=== PATIENT | male | born 1965 | race African-American/Black ===

== ENCOUNTER 2019-10-10 12:14 | Inpatient (IN) | payer BC ==
[2019-10-10] MEDS ORDERED: SODIUM CHLORIDE 1,000 ML IV STA ×2 (12:36→14:02)
[2019-10-10] MEDS ORDERED: ONDANSETRON 4 MG/2 ML VIAL IVPB ONE (12:36)
[2019-10-10] MEDS ORDERED: FAMOTIDINE 20 MG/50 ML IVPB 20 MG/50 ML MG IVPB ONE ×2 (12:37→12:53)
[2019-10-10] MEDS ORDERED: ACETAMINOPHEN 1000 MG/100 ML VIAL (NON FORMULARY) IVPB ONE (12:45)
--- NOTE | 2019-10-10 12:52 | PDOC ---
History of Present Illness - General Chief Complaint: Shortness of Breath Stated Complaint: DIFFICULTY BREATHING/VOMITING Time Seen by Provider: 10/10/19 12:36 History Source: Patient Exam Limitations: No Limitations - History of Present Illness Initial Comments: 10/10/19 12:47 53y M with PMH of kidney stones presenting to ED for vomiting and SOB x4 days. Patient works as at a [employer] office and states that symptoms started out with congestion and sore throat. He sought medical attention 2 days ago and was given an inhaler. He states that he has had multiple episodes of nbnb vomiting and has not been able to keep anything down. Endorses periumbilical abdominal pain that is 7/10 and nausea. Denies fever, chest pain, cough, diarrhea, back pain, headaches, abdominal surgeries. PMD: PMH: none PSH: none Meds:none Allergies: nkda Social: occasional alcohol use Past History - Past Medical History Allergies/Adverse Reactions: Allergies Allergy/AdvReac Type Severity Reaction Status Date / Time No Known Allergies Allergy Verified 10/10/19 12:29 COPD: No - Psycho Social/Smoking Cessation Hx Smoking History: Never smoked Information on smoking cessation initiated: No Hx Alcohol Use: No Drug/Substance Use Hx: No Review of Systems - Review of Systems Constitutional: No: Chills, Fever, Weakness HEENTM: No: Symptoms Reported Respiratory: Yes: Shortness of Breath. No: Cough Cardiac (ROS): No: Chest Pain, Lightheadedness, Palpitations, Syncope ABD/GI: Yes: See HPI : No: Symptoms Reported Musculoskeletal: No: Symptoms Reported Integumentary: No: Symptoms Reported Neurological: No: Symptoms reported *Physical Exam - Vital Signs Last Vital Signs Temp Pulse Resp BP Pulse Ox 98.6 F 82 19 125/84 100 10/10/19 12:27 10/10/19 12:27 10/10/19 12:27 10/10/19 12:27 10/10/19 12:27 - Physical Exam General Appearance: Yes: Nourished, Appropriately Dressed, Mild Distress HEENT: positive: EOMI, SON Neck: positive: Trachea midline, Supple Respiratory/Chest: positive: Lungs Clear, Wheezing (expiratory). negative: Crackles, Rales, Rhonchi, Stridor Cardiovascular: positive: Regular Rhythm, Regular Rate, S1, S2. negative: Edema , JVD, Murmur Vascular Pulses: Dorsalis-Pedis (R): 2+, Doralis-Pedis (L): 2+ Gastrointestinal/Abdominal: positive: Normal Bowel Sounds, Tender (periumbilical ), Soft. negative: Distended, Guarding, Rebound Musculoskeletal: negative: CVA Tenderness Extremity: positive: Normal Capillary Refill. negative: Swelling, Calf Tenderness Integumentary: positive: Normal Color, Dry, Warm Neurologic: positive: synthetic soil blocks pulper II-XII NML intact, Fully Oriented, Alert, Normal Mood/ Affect, Normal Response, Motor Strength 02/18 ED Treatment Course - LABORATORY CBC & Chemistry Diagram: 10/10/19 12:45 10/10/19 12:45 Medical Decision Making - Medical Decision Making 10/10/19 13:29 53y M with no significant PMH presenting to ED for SOB and vomiting vitals are stable and wnl PE: minimal abdominal tenderness but pain out of proportion. minimal expiratory wheezing. ddx includes but not limited to viral gastritis, appendicitis, acs, pe, dissection, chf, pna, pleurisy, carditis, pancreatitis, cholecystitis low suspicion for pe and dissection given patient is not tachynpneic, saturating well on RA, not tachycardic, no chest pain. -cbc, cmp, trop, lipase, lactic, UA, ekg, cxr, CTAP -iv fluids, zofran, pepcid, ofirmev upon reassessment, pt stated he felt sob. stated inhalers helped; will give albuterol treatment. labs show Wbc 13. Still wheezing, will order 2 more treatments and decadron cxr: no consolidations or infiltrates. ekg: nsr at 81bpm. no gera or depressions. normal intervals. R wave progression. Lipase 5k with elevated LFTs; likely gallstone pancreatitis, will order RUQ sono Sono: Gall bladder shows no stones or signs of inflammation. No biliary dilation seen. Liver shows mild steatosis. Right kidney shows no hydronephrosis. Portal vein shows unremarkable venous waveform. Direction of flow is not well assessed. CT: No acute process seen of the abdomen or pelvis. No gallstones or biliary dilation or obstruction seen. Mild umbilical fat hernia. will admit for pancreatitis: patient has abdominal pain with palpation and elevated LFTs and lipase. endorsed to Dr. Starkey Discharge - Discharge Information Problems reviewed: Yes Clinical Impression/Diagnosis: Pancreatitis Qualifiers: Chronicity: acute Pancreatitis type: unspecified pancreatitis type Acute pancreatitis complication: unspecified Qualified Code(s): K85.90 - Acute pancreatitis without necrosis or infection, unspecified Condition: Stable - Admission Yes - Follow up/Referral - Patient Discharge Instructions - Post Discharge Activity
[2019-10-10] MEDS ORDERED: ONDANSETRON 4 MG/2 ML VIAL ONE (12:53)
[2019-10-10 12:59] LABS: BASO % 0.5 % (0-2.0); HEMATOCRIT 46.7 % (35.4-49); HEMOGLOBIN 15.8 GM/dL (11.7-16.9); LYMPH % 7.8 % (8-40); MCH 29.6 pg (25.7-33.7); MCHC 33.9 g/dl (32.0-35.9); MEAN CELL VOLUME 87.4 fl (80-96); MEAN PLT VOLUME 7.7 fl (7.5-11.1); MONO % 8.5 % (3.8-10.2); NEUT % 83.2 % (42.8-82.8); PLATELET COUNT 319 K/MM3 (134-434); RBC 5.34 M/mm3 (4.00-5.60); RDW 12.5 % (11.9-15.9); WHITE BLOOD COUNT 13.6 K/mm3 (4.0-10.0)
[2019-10-10] MEDS ORDERED: ACETAMINOPHEN INJECTION 100 ML IVPB ONE (13:06)
[2019-10-10] MEDS ORDERED: ALBUTEROL SO4 0.083% IH SOL 2.5 MG/3 ML VIAL.NEB. NEB ONE ×3 (13:20→13:54)
[2019-10-10] MEDS ORDERED: DEXAMETHASONE SOD PHOSPHATE 10 MG/1 ML VIAL IVPUSH ONE (13:54)
[2019-10-10 13:58] LABS: ALBUMIN 4.5 g/dl (3.4-5.0); BILIRUBIN,TOTAL 0.9 mg/dL (0.2-1); CALCIUM 9.9 mg/dL (8.5-10.1); POTASSIUM 4.1 mmol/L (3.5-5.1); TOT PROT 8.3 g/dl (6.4-8.2)
[2019-10-10] MEDS ORDERED: ALBUTEROL SO4 2.5/IPRATROPIUM 0.5 INH SOL 3 ML VIAL.NEB. NEB ONE (14:04)
[2019-10-10] MEDS ORDERED: DEXAMETHASONE SOD PHOSPHATE 10 MG/1 ML VIAL ONE (14:04)
[2019-10-10] MEDS ORDERED: LACTATED RINGERS SOLUTION 1000 ML INFUS.BAG IV ONE (14:04)
[2019-10-10 14:48] LABS: EPI CELLS 1.8 /HPF (0-5/HPF); HYALINE CASTS 4 /lpf (0-8); PH,URINE 5.5 (5.0-8.0); URINE APPEARANCE CLEAR; URINE BACTERIA 0.7 /hpf (NEGATIVE); URINE BILIRUBIN NEGATIVE (NEGATIVE); URINE COLOR YELLOW; URINE GLUCOSE (UA) NEGATIVE (NEGATIVE); URINE KETONE 1+ (NEGATIVE); URINE LEUK ESTERASE NEGATIVE (NEGATIVE); URINE NITRITE NEGATIVE (NEGATIVE); URINE PROTEIN 2+ (NEGATIVE); URINE RBC 3 /hpf (0-4); URINE WBC 3 /hpf (0-5)
--- NOTE | 2019-10-10 15:54 | PDOC ---
Documentation entered by Sonya Barboza SCRIBE, acting as scribe for Dionisio Noel MD. Dionisio Noel MD: This documentation has been prepared by the lorenzaibe, Sonya Barboza SCRIBE, under my direction and personally reviewed by me in its entirety. I confirm that the documentation accurately reflects all work, treatment, procedures, and medical decision making performed by me. Attending Attestation - Resident Resident Name: Sofi Rodriguez - ED Attending Attestation I have performed the following: I have examined & evaluated the patient, The case was reviewed & discussed with the resident, I agree w/resident's findings & plan, Exceptions are as noted - HPI HPI: 10/10/19 13:20 The patient is a 53-year-old male with a past medical history significant for Kidney stones and childhood asthma who presents to the emergency department with shortness of breath and vomiting. The patient reports about a week ago he had an onset of shortness of breath, reports following up with Dr. Juares (PMD) on Tuesday, who prescribed the patient an albuterol pump. The patient denies relief with the pump, and the shortness of breath hasnt gotten better since. The patient reports on Tuesday, he started to have innumerable episodes of nonbloody, nonbilious emesis associated with diffuse abdominal pain. The patient reports he had a normal bowel movement on Tuesday. Denies fever, chills, cough, headache, chest pain, diarrhea, hematochezia, melena, urinary symptoms, leg swelling, or calf pain. Denies focal weakness/numbness. Allergies: NKDA Social history: Denies the use of tobacco, alcohol or recreational drugs. PCP: Dr. Juares. - Physicial Exam PE: 10/10/19 14:13 GENERAL: Awake, alert, and fully oriented, in no acute distress, +appears uncomfortable. EYES: PERRLA, EOMI, sclera anicteric, conjunctiva clear ENT: Oropharynx clear without exudates. Moist mucosa NECK: Normal ROM, supple, no lymphadenopathy, JVD, or masses LUNGS: +good air movement in lungs, +diffuse expiratory wheezing right greater than left. No crackles HEART: Regular rate and rhythm, normal S1 and S2, no murmurs, rubs or gallops ABDOMEN: Soft, nontender, normoactive bowel sounds. No guarding, no rebound. No masses EXTREMITIES: Normal range of motion, no edema. No clubbing or cyanosis. No cords , erythema, or tenderness NEUROLOGICAL: Normal speech, cranial nerves intact, 5/5 strength in all 4 extremities, normal sensation to light touch in all 4 extremities, normal cerebellar exam, normal gait SKIN: Warm, Dry, normal turgor, no rashes or lesions noted. - Medical Decision Making 10/10/19 15:51 53-year-old male with a history of renal colic and childhood asthma presents the emergency department with 1 week of shortness of breath and 2 days of abdominal pain, nausea, and vomiting. Lungs with diffuse wheezing consistent with asthma exacerbation. Patient feeling better with nebulizer treatments. We will also give steroids for further treatment. Labs remarkable for lipase elevation to 3500 consistent with pancreatitis. Ultrasound negative for any gallstones or biliary dilation. Will obtain CT scan to evaluate for necrosis or pseudocyst. 2 L of normal saline ordered. Patient denies excessive drinking, new medications. Anticipate admission for pancreatitis and asthma exacerbation. 10/10/19 16:[address] Starkey for admission, pt accepted to her service Case discussed in detail with admitting physician including history, physical exam and ancillary studies. Admitting physician has assumed care for the patient, will follow all pending diagnostics and will complete the evaluation and treatment.
[2019-10-10] MEDS ORDERED: morphine SULFATE 4 MG/ML VIAL IVPUSH ONE (20:45)
[2019-10-11] MEDS ORDERED: ONDANSETRON 4 MG/2 ML VIAL IVPUSH PRN (00:38)
[2019-10-11] MEDS ORDERED: ALBUTEROL SO4 2.5/IPRATROPIUM 0.5 INH SOL 3 ML VIAL.NEB. NEB PRN (00:40)
[2019-10-11] MEDS: PIPERACILLIN/TAZOB 3.375 GM 3.375 GM in DEXTROSE 5%-WATER - 50 ML IVPB SCH ×2 (02:30→09:59)
[2019-10-11] MEDS ORDERED: PIPERACILLIN/TAZOBACTAM 3.375 GM VIAL IVPB ONE ×2 (02:39→09:54)
[2019-10-11] MEDS ORDERED: DEXTROSE 5%-WATER - 50 ML IVPB ONE ×2 (02:39→09:54)
[2019-10-11] MEDS: DEXTROSE 5%-0.45% SALINE 1,000 ML IV SCH ×2 (02:57→21:30)
--- NOTE | 2019-10-11 05:08 | EKG ---
Test Reason : Blood Pressure : / mmHG Vent. Rate : 081 BPM Atrial Rate : 081 BPM P-R Int : 122 ms QRS Dur : 088 ms QT Int : 378 ms P-R-T Axes : 066 016 045 degrees QTc Int : 439 ms NORMAL SINUS RHYTHM POSSIBLE LEFT ATRIAL ENLARGEMENT BORDERLINE ECG WHEN COMPARED WITH ECG OF 02-NOV-2010 13:28, T WAVE INVERSION NO LONGER EVIDENT IN INFERIOR LEADS Confirmed by ANGEL CACERES, ASCENCION ([id number]) on 10/11/2019 5:08:16 AM Referred By: Confirmed By:ASCENCION ORTIZ MD
[2019-10-11 08:32] LABS: BASO % 0.2 % (0-2.0); HEMATOCRIT 41.5 % (35.4-49); HEMOGLOBIN 13.8 GM/dL (11.7-16.9); LYMPH % 8.2 % (8-40); MCH 29.4 pg (25.7-33.7); MCHC 33.4 g/dl (32.0-35.9); MEAN CELL VOLUME 88.1 fl (80-96); MEAN PLT VOLUME 8.5 fl (7.5-11.1); MONO % 7.5 % (3.8-10.2); NEUT % 84.1 % (42.8-82.8); PLATELET COUNT 291 K/MM3 (134-434); RBC 4.71 M/mm3 (4.00-5.60); RDW 13.1 % (11.9-15.9)
[2019-10-11 09:18] LABS: ALBUMIN 3.6 g/dl (3.4-5.0); BLOOD UREA NITROGEN 22.1 mg/dL (7-18); CALCIUM 8.9 mg/dL (8.5-10.1); CREATININE 0.8 mg/dL (0.55-1.3); POTASSIUM 4.2 mmol/L (3.5-5.1)
--- NOTE | 2019-10-11 11:12 | CON.ID ---
Consult Consult Specialty:: infectious diseases Referred by:: Reason for Consultation:: abd pain,vomiting,sob - History of Present Illness Chief Complaint: weakness,vomiting,sob History of Present Illness: 53-year-old male with a past medical history significant for Kidney stones and childhood asthma who presents with shortness of breath and vomiting. The patient reports about a week ago he had an onset of shortness of breath, reports following up with Dr. Juares (PMD) on Tuesday, who prescribed the patient an albuterol pump. The patient denies relief with the pump, and the shortness of breath hasnt gotten better since. The patient reports on Tuesday, he started to have innumerable episodes of nonbloody, nonbilious emesis associated with diffuse abdominal pain. The patient reports he had a normal bowel movement on Tuesday. Denies fever, chills, cough, headache, chest pain, diarrhea, hematochezia, melena, urinary symptoms, leg swelling, or calf pain. Denies focal weakness/numbness. patient mentions that since last one week he has feeling under the weather and thought he had flu as he was very weak - History Source History Provided By: Patient Limitations to Obtaining History: No Limitations - Alcohol/Substance Use Hx Alcohol Use: No - Smoking History Smoking history: Never smoked Home Medications - Allergies Allergies/Adverse Reactions: Allergies Allergy/AdvReac Type Severity Reaction Status Date / Time No Known Allergies Allergy Verified 10/10/19 12:29 Review of Systems - Review of Systems Constitutional: reports: Weakness Eyes: reports: No Symptoms HENT: reports: No Symptoms Neck: reports: No Symptoms Cardiovascular: reports: No Symptoms Respiratory: reports: Cough, SOB Gastrointestinal: reports: Nausea Genitourinary: reports: No Symptoms Musculoskeletal: reports: No Symptoms Integumentary: reports: No Symptoms Neurological: reports: No Symptoms Endocrine: reports: No Symptoms Hematology/Lymphatic: reports: No Symptoms Psychiatric: reports: No Symptoms Physical Exam Vital Signs: Vital Signs Temperature 97.0 F L 10/11/19 10:00 Pulse Rate 58 L 10/11/19 10:00 Respiratory Rate 18 10/11/19 10:00 Blood Pressure 123/74 10/11/19 10:00 O2 Sat by Pulse Oximetry (%) 98 10/10/19 20:36 Constitutional: Yes: Well Nourished, No Distress, Calm Eyes: Yes: Conjunctiva Clear HENT: Yes: Atraumatic, Normocephalic Cardiovascular: Yes: Regular Rate and Rhythm Respiratory: Yes: Regular, CTA Bilaterally Gastrointestinal: Yes: Normal Bowel Sounds, Soft Musculoskeletal: Yes: WNL Extremities: Yes: WNL Neurological: Yes: Alert, Oriented Psychiatric: Yes: Alert, Oriented Labs: CBC, BMP 10/11/19 06:55 10/11/19 06:55 Imaging - Results Chest X-ray: Report Reviewed, Image Reviewed Cat Scan: Report Reviewed, Image Reviewed Assessment/Plan this patient coming in wiht nausea,vomiting mainly and who has been sick for about one week i am leaning towards viral infection wbc has increased i am going to stop all abx and monitor him rest as per the team hydration monitor for vomiting
--- NOTE | 2019-10-11 14:06 | PN ---
Progress Note (short form) - Note Progress Note: Called to evaluate patient. Patient is a patient of Dr. Ben Gonzalez and known to Dr. Galarza (performed Mr. lopez's colonoscopy as outpatient per the patient) . Advised nurse to call Dr. Galarza's service for further evaluation.
--- NOTE | 2019-10-11 18:14 | CON.GI ---
Consult Consult Specialty:: GI Reason for Consultation:: Pancreatitis - History of Present Illness History of Present Illness: 53year-old male with a history of renal colic and childhood asthma presents the emergency department with 1 week of shortness of breath and 2 days of abdominal pain, nausea, and vomiting. In the ER he was noted to be wheezing and lipase was 3500. The ct scan revealed a normal pancreas Last colonoscopy 2010 - Alcohol/Substance Use Hx Alcohol Use: No - Smoking History Smoking history: Never smoked Home Medications - Allergies Allergies/Adverse Reactions: Allergies Allergy/AdvReac Type Severity Reaction Status Date / Time No Known Allergies Allergy Verified 10/10/19 12:29 Physical Exam-GI Vital Signs: Vital Signs Temperature 98.8 F 10/11/19 13:52 Pulse Rate 56 L 10/11/19 13:52 Respiratory Rate 18 10/11/19 13:52 Blood Pressure 113/76 10/11/19 13:52 O2 Sat by Pulse Oximetry (%) 98 10/11/19 09:00 Constitutional: Yes: Well Nourished Eyes: Yes: Conjunctiva Clear HENT: Yes: Atraumatic Neck: Yes: Supple Cardiovascular: Yes: Regular Rate and Rhythm Respiratory: Yes: CTA Bilaterally ...Palpate: Yes: Soft, Tenderness. No: Firm/Rigid, Guarding, Hepatomegaly, Mass , Pulsatile Mass, Splenomegaly Labs: CBC, BMP 10/11/19 06:55 10/11/19 06:55 Hepatic Panel Total Bilirubin 1.0 mg/dL (0.2-1) 10/11/19 06:55 AST 122 U/L (15-37) H 10/11/19 06:55 ALT 166 U/L (13-61) H 10/11/19 06:55 Alkaline Phosphatase 61 U/L (45-117) 10/11/19 06:55 Albumin 3.6 g/dl (3.4-5.0) 10/11/19 06:55 Problem List - Problems (1) Acute pancreatitis Assessment/Plan: r/o viral R> IV hydration Code(s): K85.90 - ACUTE PANCREATITIS WITHOUT NECROSIS OR INFECTION, UNSP (2) Elevated liver enzymes Assessment/Plan: etiology unclear R> hepatitis profile trend LFTS furhter w/u as an outpatient made aware to follow up Problems reviewed: Yes Code(s): R74.8 - ABNORMAL LEVELS OF OTHER SERUM ENZYMES
--- NOTE | 2019-10-11 19:36 | HP ---
Admitting History and Physical - Smoking History Smoking history: Never smoked - Alcohol/Substance Use Hx Alcohol Use: No Home Medications - Allergies Allergies/Adverse Reactions: Allergies Allergy/AdvReac Type Severity Reaction Status Date / Time No Known Allergies Allergy Verified 10/10/19 12:29 Physical Examination Vital Signs: Vital Signs Temperature 98.1 F 10/11/19 18:00 Pulse Rate 81 10/11/19 18:00 Respiratory Rate 18 10/11/19 18:00 Blood Pressure 112/62 10/11/19 18:00 O2 Sat by Pulse Oximetry (%) 98 10/11/19 09:00 Labs: CBC, BMP 10/11/19 06:55 10/11/19 06:55
[2019-10-12] MEDS ORDERED: PIPERACILLIN/TAZOB 3.375 GM 3.375 GM in DEXTROSE 5%-WATER - 50 ML IVPB SCH (02:00)
--- NOTE | 2019-10-12 08:58 | PN ---
Progress Note, Physician History of Present Illness: GI FOLLOW UP NOTE Patient examined and case discussed with Dr Galarza Patient states feeling better. Denies nausea, vomiting, abdominal pain, diarrhea, constipation, rectal bleeding, or melena. Lipase level shows downtrend from 3554~279. LFTs are showing uptrend wih AST 122 and ALT 166. - Current Medication List Current Medications: Active Medications Albuterol/Ipratropium (Duoneb -) 1 amp NEB Q6H PRN PRN Reason: SHORTNESS OF BREATH Dextrose/Sodium Chloride (D5-1/2ns -) 1,000 mls @ 75 mls/hr IV ASDIR PABLITO Last Admin: 10/11/19 21:30 Dose: 75 mls/hr Piperacillin Sod/Tazobactam (Sod 3.375 gm/ Dextrose) 50 mls @ 100 mls/hr IVPB Q8H-IV PABLITO; Protocol Ondansetron HCl (Zofran Injection) 4 mg IVPUSH Q6H PRN PRN Reason: NAUSEA - Objective Vital Signs: Vital Signs Temperature 98.4 F 10/12/19 06:27 Pulse Rate 57 L 10/12/19 06:27 Respiratory Rate 20 10/12/19 06:27 Blood Pressure 99/58 L 10/12/19 06:27 O2 Sat by Pulse Oximetry (%) 98 10/11/19 21:00 Constitutional: Yes: No Distress, Calm Eyes: Yes: Conjunctiva Clear HENT: Yes: Atraumatic Cardiovascular: Yes: Regular Rate and Rhythm Respiratory: Yes: Regular, CTA Bilaterally Gastrointestinal: Yes: Normal Bowel Sounds, Soft Neurological: Yes: Alert, Oriented Psychiatric: Yes: Alert, Oriented Labs: CBC, BMP 10/11/19 06:55 10/11/19 06:55 Problem List - Problems (1) Acute pancreatitis Assessment/Plan: >Cont IV Hydration >Lipase level 3553~279 >advance diet as tolerated Code(s): K85.90 - ACUTE PANCREATITIS WITHOUT NECROSIS OR INFECTION, UNSP (2) Elevated liver enzymes Assessment/Plan: >monitor LFTs daily >Hepatitis profile >will need to follow up as outpatient for chronic liver work-up Code(s): R74.8 - ABNORMAL LEVELS OF OTHER SERUM ENZYMES
[2019-10-12 09:18] LABS: BASO % 0.1 % (0-2.0); EOS % 0.1 % (0-4.5); HEMATOCRIT 39.5 % (35.4-49); HEMOGLOBIN 13.4 GM/dL (11.7-16.9); LYMPH % 24.6 % (8-40); MCH 29.7 pg (25.7-33.7); MEAN CELL VOLUME 87.5 fl (80-96); MEAN PLT VOLUME 8.3 fl (7.5-11.1); MONO % 8.3 % (3.8-10.2); NEUT % 66.9 % (42.8-82.8); PLATELET COUNT 275 K/MM3 (134-434); RBC 4.52 M/mm3 (4.00-5.60); RDW 12.4 % (11.9-15.9); WHITE BLOOD COUNT 9.7 K/mm3 (4.0-10.0)
[2019-10-12 09:42] LABS: ALBUMIN 3.3 g/dl (3.4-5.0); BILIRUBIN,TOTAL 1.1 mg/dL (0.2-1); BLOOD UREA NITROGEN 24.3 mg/dL (7-18); CALCIUM 8.4 mg/dL (8.5-10.1); CREATININE 0.8 mg/dL (0.55-1.3); POTASSIUM 3.7 mmol/L (3.5-5.1); TOT PROT 6.3 g/dl (6.4-8.2)
[2019-10-12] MEDS: DEXTROSE 5%-0.45% SALINE 1,000 ML IV SCH (11:45)
--- NOTE | 2019-10-12 12:47 | PN ---
Progress Note, Physician History of Present Illness: starting to feel better lipase has come down - Current Medication List Current Medications: Active Medications Albuterol/Ipratropium (Duoneb -) 1 amp NEB Q6H PRN PRN Reason: SHORTNESS OF BREATH Dextrose/Sodium Chloride (D5-1/2ns -) 1,000 mls @ 75 mls/hr IV ASDIR PABLITO Last Admin: 10/12/19 11:45 Dose: 75 mls/hr Piperacillin Sod/Tazobactam (Sod 3.375 gm/ Dextrose) 50 mls @ 100 mls/hr IVPB Q8H-IV PABLITO; Protocol Ondansetron HCl (Zofran Injection) 4 mg IVPUSH Q6H PRN PRN Reason: NAUSEA - Objective Vital Signs: Vital Signs Temperature 97.5 F L 10/12/19 09:00 Pulse Rate 56 L 10/12/19 09:00 Respiratory Rate 18 10/12/19 09:00 Blood Pressure 100/67 10/12/19 09:00 O2 Sat by Pulse Oximetry (%) 95 10/12/19 09:00 Constitutional: Yes: No Distress, Calm Cardiovascular: Yes: S1, S2 Respiratory: Yes: Regular, CTA Bilaterally Gastrointestinal: Yes: Normal Bowel Sounds, Soft Musculoskeletal: Yes: WNL Extremities: Yes: WNL Neurological: Yes: Alert, Oriented Psychiatric: Yes: Alert, Oriented Labs: CBC, BMP 10/12/19 07:25 10/12/19 07:25 Assessment/Plan Problem List - Problems (1) Acute pancreatitis Code(s): K85.90 - ACUTE PANCREATITIS WITHOUT NECROSIS OR INFECTION, UNSP (2) Elevated liver enzymes Code(s): R74.8 - ABNORMAL LEVELS OF OTHER SERUM ENZYMES nausea vomiting plan continue hydration rest as per the team
--- NOTE | 2019-10-12 14:15 | CON.PULM ---
Consult Consult Specialty:: PULM/CCM Referred by:: MELANIE Reason for Consultation:: SOB, history of asthma - History of Present Illness Chief Complaint: SOB History of Present Illness: 53 M, Intermittent Asthma since childhood. Never steroid dependent, never intubated, unknown PEF, and non-smoker. Admitted via the ER due to shortness of breath and vomiting. His shortness of breath has been intermittent over the past week or so. There has been marginal relief with his Albuterol inhaler. On Tuesday, he developed numerous episodes of nonbloody, nonbilious emesis associated with diffuse abdominal pain. No travel history or sick contacts. CXR: no acute process - History Source History Provided By: Patient Limitations to Obtaining History: No Limitations - Past Medical History Pulmonary: Yes: Asthma, Bronchitis. No: Cancer, COPD, O2 Dependent, Pneumonia, Previously Intubated, Pulmonary Embolus, Pulmonary Fibrosis, Sleep Apnea - Alcohol/Substance Use Hx Alcohol Use: No - Smoking History Smoking history: Never smoked Home Medications - Allergies Allergies/Adverse Reactions: Allergies Allergy/AdvReac Type Severity Reaction Status Date / Time No Known Allergies Allergy Verified 10/10/19 12:29 Review of Systems - Review of Systems Constitutional: denies: Chills, Fever, Lethargy, Loss of Appetite, Malaise, Night Sweats, Unintentional Wgt. Loss Eyes: reports: No Symptoms HENT: reports: No Symptoms Neck: reports: No Symptoms Cardiovascular: reports: Shortness of Breath. denies: Chest Pain, Edema, Palpitations Respiratory: reports: Cough, SOB, SOB on Exertion. denies: Exercise Intolerance , Hemoptysis, Orthopnea, PND, Snoring, Wheezing Gastrointestinal: reports: Abdominal Pain, Melena, Nausea, Vomiting Genitourinary: reports: No Symptoms Breasts: reports: No Symptoms Reported Musculoskeletal: reports: No Symptoms Integumentary: reports: No Symptoms Neurological: reports: No Symptoms Endocrine: reports: No Symptoms Hematology/Lymphatic: reports: No Symptoms Psychiatric: reports: No Symptoms Physical Exam Vital Sings: Vital Signs Temperature 97.5 F L 10/12/19 09:00 Pulse Rate 56 L 10/12/19 09:00 Respiratory Rate 18 10/12/19 09:00 Blood Pressure 100/67 10/12/19 09:00 O2 Sat by Pulse Oximetry (%) 95 10/12/19 09:00 Constitutional: Yes: No Distress, Calm Eyes: Yes: Conjunctiva Clear, EOM Intact HENT: Yes: Atraumatic, Normocephalic Neck: Yes: Supple, Trachea Midline Cardiovascular: Yes: Regular Rate and Rhythm Respiratory: Yes: CTA Bilaterally. No: Accessory Muscle Use, Cough, Diminished , Rales, Rhonchi, SOB, SOB on Exertion, Stridor, Tachypnea, Wheezes ...Inspection: Yes: WNL ...Clubbing: No Gastrointestinal: Yes: Normal Bowel Sounds, Soft Renal/: Yes: WNL Musculoskeletal: Yes: WNL Extremities: Yes: WNL Edema: No Peripheral Pulses WNL: Yes Integumentary: Yes: WNL Neurological: Yes: WNL, Alert, Oriented ...Motor Strength: WNL Psychiatric: Yes: WNL, Alert, Oriented Labs: CBC, BMP 10/12/19 07:25 10/12/19 07:25 Imaging - Results Chest X-ray: Report Reviewed, Image Reviewed Problem List - Problems (1) Asthma Code(s): J45.909 - UNSPECIFIED ASTHMA, UNCOMPLICATED Qualifiers: Asthma persistence: intermittent (2) Acute pancreatitis Code(s): K85.90 - ACUTE PANCREATITIS WITHOUT NECROSIS OR INFECTION, UNSP (3) Elevated liver enzymes Code(s): R74.8 - ABNORMAL LEVELS OF OTHER SERUM ENZYMES Assessment/Plan BD TX PRN No indication for systemic steroids at this time IVF Pain conntrol PO as tolerated VTE prophylaxis No smoking counseled Will follow Thank you. Dr Woods
[2019-10-12 15:47] VITALS: BMI 30.5
--- NOTE | 2019-10-12 16:42 | PN.GI ---
GI Progress Note Subjective: no abdominal pain, tolerating clear liquids - Objective Vital Signs: Vital Signs Temperature 97.9 F 10/12/19 14:46 Pulse Rate 63 10/12/19 14:46 Respiratory Rate 18 10/12/19 14:46 Blood Pressure 114/71 10/12/19 14:46 O2 Sat by Pulse Oximetry (%) 95 10/12/19 09:00 Constitutional: Well Nourished Eyes: Yes: Conjunctiva Clear HENT: Yes: Atraumatic Neck: Yes: Supple Cardiovascular: Yes: Regular Rate and Rhythm Respiratory: Yes: CTA Bilaterally ...Palpate: Yes: Soft. No: Firm/Rigid, Guarding, Hepatomegaly, Mass, Pulsatile Mass, Splenomegaly, Tenderness Labs: CBC, BMP 10/12/19 07:25 10/12/19 07:25 Problem List - Problems (1) Acute pancreatitis Assessment/Plan: resolved R> made aware to follow up repeat ct in 3mos Code(s): K85.90 - ACUTE PANCREATITIS WITHOUT NECROSIS OR INFECTION, UNSP (2) Elevated liver enzymes Assessment/Plan: downward trend Code(s): R74.8 - ABNORMAL LEVELS OF OTHER SERUM ENZYMES
--- NOTE | 2019-10-12 23:04 | PN ---
Progress Note, Physician - Current Medication List Current Medications: Active Medications Albuterol/Ipratropium (Duoneb -) 1 amp NEB Q6H PRN PRN Reason: SHORTNESS OF BREATH Dextrose/Sodium Chloride (D5-1/2ns -) 1,000 mls @ 75 mls/hr IV ASDIR PABLITO Last Admin: 10/12/19 11:45 Dose: 75 mls/hr Piperacillin Sod/Tazobactam (Sod 3.375 gm/ Dextrose) 50 mls @ 100 mls/hr IVPB Q8H-IV PABLITO; Protocol Ondansetron HCl (Zofran Injection) 4 mg IVPUSH Q6H PRN PRN Reason: NAUSEA - Objective Vital Signs: Vital Signs Temperature 98.1 F 10/12/19 19:48 Pulse Rate 81 10/12/19 19:48 Respiratory Rate 20 10/12/19 22:00 Blood Pressure 106/63 10/12/19 19:48 O2 Sat by Pulse Oximetry (%) 95 10/12/19 22:00 Constitutional: Yes: Well Nourished Neck: Yes: WNL, Supple Cardiovascular: Yes: WNL, Regular Rate and Rhythm Respiratory: Yes: WNL, Regular, CTA Bilaterally Gastrointestinal: Yes: WNL, Normal Bowel Sounds, Soft Labs: CBC, BMP 10/12/19 07:25 10/12/19 07:25 Problem List - Problems (1) Acute pancreatitis Assessment/Plan: Pt tolerating diet Amylase/lipase normal Probable dc planning for am Code(s): K85.90 - ACUTE PANCREATITIS WITHOUT NECROSIS OR INFECTION, UNSP (2) Asthma Assessment/Plan: Stable Pulmonary consult noted Cont duoneb Code(s): J45.909 - UNSPECIFIED ASTHMA, UNCOMPLICATED Qualifiers: Asthma persistence: intermittent (3) Elevated liver enzymes Assessment/Plan: Trending down Further w/u as outpt Code(s): R74.8 - ABNORMAL LEVELS OF OTHER SERUM ENZYMES
[2019-10-13] MEDS: DEXTROSE 5%-0.45% SALINE 1,000 ML IV SCH (01:14)
--- NOTE | 2019-10-13 10:24 | PN ---
Progress Note (short form) - Note Progress Note: Required 1 BD TX this AM. Currently breathing feels fine on RA. No acute events overnight. Intake & Output 10/10/19 10/11/19 10/12/19 10/13/19 23:59 23:59 23:59 23:59 Intake Total 0 1350 1320 150 Output Total 500 600 Balance 0 1350 820 -450 Weight 213 lb 14.4 oz 213 lb Last Vital Signs Temp Pulse Resp BP Pulse Ox 98.4 F 78 18 112/75 95 10/13/19 09:00 10/13/19 09:00 10/13/19 09:00 10/13/19 09:00 10/12/19 22:00 Active Medications Albuterol/Ipratropium (Duoneb -) 1 amp NEB Q6H PRN PRN Reason: SHORTNESS OF BREATH Last Admin: 10/13/19 09:44 Dose: 1 amp Dextrose/Sodium Chloride (D5-1/2ns -) 1,000 mls @ 75 mls/hr IV ASDIR PABLITO Last Admin: 10/13/19 01:14 Dose: 75 mls/hr Piperacillin Sod/Tazobactam (Sod 3.375 gm/ Dextrose) 50 mls @ 100 mls/hr IVPB Q8H-IV PABLITO; Protocol Ondansetron HCl (Zofran Injection) 4 mg IVPUSH Q6H PRN PRN Reason: NAUSEA Constitutional: Yes: No Distress, Calm Eyes: Yes: Conjunctiva Clear, EOM Intact HENT: Yes: Atraumatic, Normocephalic Neck: Yes: Supple, Trachea Midline Cardiovascular: Yes: Regular Rate and Rhythm Respiratory: Yes: CTA Bilaterally. No: Accessory Muscle Use, Cough, Diminished , Rales, Rhonchi, SOB, SOB on Exertion, Stridor, Tachypnea, Wheezes ...Inspection: Yes: WNL ...Clubbing: No Gastrointestinal: Yes: Normal Bowel Sounds, Soft Renal/: Yes: WNL Musculoskeletal: Yes: WNL Extremities: Yes: WNL Edema: No Peripheral Pulses WNL: Yes Integumentary: Yes: WNL Neurological: Yes: WNL, Alert, Oriented ...Motor Strength: WNL Psychiatric: Yes: WNL, Alert, Oriented Labs: Laboratory Results - last 24 hr 10/12/19 11:00 Hep C Ab Diagnostic <0.1 Problem List - Problems (1) Asthma Code(s): J45.909 - UNSPECIFIED ASTHMA, UNCOMPLICATED Qualifiers: Asthma persistence: intermittent (2) Acute pancreatitis Code(s): K85.90 - ACUTE PANCREATITIS WITHOUT NECROSIS OR INFECTION, UNSP (3) Elevated liver enzymes Code(s): R74.8 - ABNORMAL LEVELS OF OTHER SERUM ENZYMES Assessment/Plan BD TX PRN No indication for systemic steroids at this time IVF Pain conntrol PO as tolerated VTE prophylaxis No smoking counseled Dr Woods Problem List - Problems (1) Asthma Code(s): J45.909 - UNSPECIFIED ASTHMA, UNCOMPLICATED Qualifiers: Asthma persistence: intermittent (2) Acute pancreatitis Code(s): K85.90 - ACUTE PANCREATITIS WITHOUT NECROSIS OR INFECTION, UNSP (3) Elevated liver enzymes Code(s): R74.8 - ABNORMAL LEVELS OF OTHER SERUM ENZYMES
--- NOTE | 2019-10-13 10:36 | PN ---
Progress Note, Physician History of Present Illness: improving no new issues - Current Medication List Current Medications: Active Medications Albuterol/Ipratropium (Duoneb -) 1 amp NEB Q6H PRN PRN Reason: SHORTNESS OF BREATH Last Admin: 10/13/19 09:44 Dose: 1 amp Dextrose/Sodium Chloride (D5-1/2ns -) 1,000 mls @ 75 mls/hr IV ASDIR PABLITO Last Admin: 10/13/19 01:14 Dose: 75 mls/hr Piperacillin Sod/Tazobactam (Sod 3.375 gm/ Dextrose) 50 mls @ 100 mls/hr IVPB Q8H-IV PABLITO; Protocol Ondansetron HCl (Zofran Injection) 4 mg IVPUSH Q6H PRN PRN Reason: NAUSEA - Objective Vital Signs: Vital Signs Temperature 98.4 F 10/13/19 09:00 Pulse Rate 78 10/13/19 09:00 Respiratory Rate 18 10/13/19 09:00 Blood Pressure 112/75 10/13/19 09:00 O2 Sat by Pulse Oximetry (%) 95 10/12/19 22:00 Constitutional: Yes: No Distress, Calm Cardiovascular: Yes: S1, S2 Respiratory: Yes: Regular, CTA Bilaterally Gastrointestinal: Yes: Normal Bowel Sounds, Soft Musculoskeletal: Yes: WNL Extremities: Yes: WNL Neurological: Yes: Alert, Oriented Psychiatric: Yes: Alert, Oriented Labs: CBC, BMP 10/12/19 07:25 10/12/19 07:25 Assessment/Plan Problem List - Problems (1) Asthma Code(s): J45.909 - UNSPECIFIED ASTHMA, UNCOMPLICATED Qualifiers: Asthma persistence: intermittent (2) Acute pancreatitis Code(s): K85.90 - ACUTE PANCREATITIS WITHOUT NECROSIS OR INFECTION, UNSP (3) Elevated liver enzymes Code(s): R74.8 - ABNORMAL LEVELS OF OTHER SERUM ENZYMES nausea vomiting plan continue hydration rest as per the team
--- NOTE | 2019-10-13 14:00 | DS ---
Physical Exam: SUBJECTIVE: Patient seen and examined; no new events noted. Tolerating diet. 10 sys ROS done and negative aside from HPI OBJECTIVE: Vital Signs Period Temp Pulse Resp BP Sys/Patricio Pulse Ox Last 24 Hr 97.9 F-98.4 F 59-81 18-20 106-118/63-75 95-95 PHYSICAL EXAM GENERAL: The patient is awake, alert, and fully oriented, in no acute distress. HEAD: Normal with no signs of trauma. EYES: PERRL, extraocular movements intact, sclera anicteric, conjunctiva clear. ENT: Ears normal, nares patent, oropharynx clear without exudates, moist mucous membranes. NECK: Trachea midline, full range of motion, supple. LUNGS: Breath sounds equal, clear to auscultation bilaterally HEART: Regular rate and rhythm, S1, S2 without murmur, rub or gallop. ABDOMEN: Soft, nontender, nondistended, normoactive bowel sounds EXTREMITIES: 2+ pulses, warm, well-perfused, no edema. NEUROLOGICAL: Cranial nerves II through XII grossly intact. Normal speech, gait not observed. PSYCH: Normal mood, normal affect. SKIN: Warm, dry, normal turgor, no rashes or lesions noted. LABS Laboratory Results - last 24 hr 10/12/19 11:00 Hep C Ab Diagnostic <0.1 HOSPITAL COURSE: Date of Admission:10/10/19 Date of Discharge: 10/13/19 Abd US: Diffuse fatty infiltration of the liver CT abd/pelvis: No acute pathology Problems include: -Abdominal Pain, improved -Likely gastritis -Likely FERNÁNDEZ, FU OP results for hepatitis pannel (the HCV Ab screen is negative) -(Initial) Suspected pancreatitis -Hx Asthma, not in acute exacerbation (Given requisition for OP FU with pulm and PRN albuterol. Asx and on RA; FU with pulm for PFTs and establish peak flow ). -Hematuria -History of renal stones -Obesity (BMI 30.6) Full Code Minutes to complete discharge: 45 Discharge Summary Problems reviewed: Yes Reason For Visit: PANCREATITIS Current Active Problems Acute pancreatitis (Acute) Asthma (Acute) Elevated liver enzymes (Acute) Pancreatitis (Acute) Condition: Improved - Instructions Diet, Activity, Other Instructions: Diet: Resume home diet Activity level: Resume prior activity level, no restrictions Followup: -PCP 3-5 days -GI within 1 week -New referral given to Dr Avalos (1 month-pulmonary followup) -New referral given to Dr Loyda Juares given hematuria on UA with history of renal stones You were admitted for abdominal pain and suspected pancreatitis; there was no obvious pathology on the CT and your symptoms remained stable You wee started on protonix for your symptoms ad were given the provided followup. Please call if questions Return to ER if worsening abdominal pain, jaundice, SOB, or confusion You need to followup the results of the RUQ US and the hepatitis pannel with your primary care provider Referrals: Sandeep Galarza MD [Staff Physician] - 1 Week (For FU transaminitis, etc. ) Ben Juares MD [Primary Care Provider] - 1 Week Loyda Juares MD [Staff Physician] - 2 Weeks (For renal stones hx, hematuria) Disposition: HOME This patient is new to me today: Yes Date on this admission: 10/28/19 Emergency Visit: Yes ED Registration Date: 10/10/19 Care time: The patient presented to the Emergency Department on the above date and was hospitalized for further evaluation of their emergent condition. Critical Care patient: No - Discharge Referral Referred to [facility] Med P.C.: No
[2019-10-13] MEDS ORDERED: PANTOPRAZOLE 40 MG TABLET (FP) PO SCH (14:15)
[2019-10-13 14:24] VITALS: BP 118/71; PULSE 68; TEMP 98.1
[2019-10-13 19:06] LABS: HEP B CORE AB, TOT Negative (Negative)
== END 2019-10-13 16:10 | disposition home or self-care (01) | DRG 440 ==
LOC: JER 12:14 → JERBED 18:10 → J6S 18:21
PROVIDERS: ADMIT Internal Medicine; ATTEND Internal Medicine
DX: K85.90 Acute pancreatitis without necrosis or infection, unspecified (principal); R74.8 Abnormal levels of other serum enzymes; R31.9 Hematuria, unspecified; E66.9 Obesity, unspecified; Z68.30 Body mass index [BMI] 30.0-30.9, adult; K76.0 Fatty (change of) liver, not elsewhere classified; J45.909 Unspecified asthma, uncomplicated; R11.2 Nausea with vomiting, unspecified
CPT/HCPCS: 36415; 71045-TC-FY; 74177-TC; 76705-TC; 80053; 81003; 82150; 83605; 83690; 84484; 85025; 86704; 86706; 86707; 86708; 86709; 86803; 87340; 87804; 93005; 93010; 94640; 99284-25; J0131; J1100; J7030; Q9967

== ENCOUNTER 2021-01-10 00:25 | Inpatient (IN) | payer BC ==
[2021-01-10 00:45] VITALS: BMI 25.1
[2021-01-10] MEDS ORDERED: ONDANSETRON 4 MG/2 ML VIAL IVPUSH ONE ×3 (01:08→04:47)
[2021-01-10] MEDS ORDERED: SODIUM CHLORIDE 0.9% 500 ML INFUS.BAG IV ONE (01:08)
[2021-01-10] MEDS ORDERED: FAMOTIDINE 20 MG/50 ML IVPB 20 MG/50 ML MG IVPB ONE ×2 (01:15→01:17)
[2021-01-10] MEDS ORDERED: ONDANSETRON 4 MG/2 ML VIAL ONE ×2 (01:17→04:59)
[2021-01-10 01:28] LABS: BASO % 0.5 % (0-2.0); EOS % 0.2 % (0-4.5); HEMOGLOBIN 14.9 GM/dL (11.7-16.9); LYMPH % 10.4 % (8-40); MCH 29.9 pg (25.7-33.7); MCHC 33.7 g/dl (32.0-35.9); MEAN CELL VOLUME 88.7 fl (80-96); MEAN PLT VOLUME 8.4 fl (7.5-11.1); MONO % 8.5 % (3.8-10.2); NEUT % 80.4 % (42.8-82.8); PLATELET COUNT 313 K/MM3 (134-434); RBC 4.96 M/mm3 (4.00-5.60); RDW 13.2 % (11.9-15.9); WHITE BLOOD COUNT 16.7 K/mm3 (4.0-10.0)
[2021-01-10] MEDS ORDERED: ACETAMINOPHEN 1000 MG/100 ML VIAL (NON FORMULARY) IVPB ONE (01:42)
[2021-01-10 01:56] LABS: CALCIUM 10.1 mg/dL (8.5-10.1)
[2021-01-10 01:57] LABS: ALBUMIN 4.6 g/dl (3.4-5.0); BLOOD UREA NITROGEN 28.2 mg/dL (7-18); MAGNESIUM 2.5 mg/dL (1.8-2.4)
[2021-01-10 02:00] LABS: CREATININE 1.3 mg/dL (0.55-1.3); PHOSPHOROUS 2.9 mg/dL (2.5-4.9)
[2021-01-10 02:01] LABS: TOT PROT 7.9 g/dl (6.4-8.2)
[2021-01-10] MEDS ORDERED: ACETAMINOPHEN INJECTION 100 ML IVPB ONE (02:04)
[2021-01-10 03:11] LABS: EPI CELLS 22 /uL (0-25.1); HYALINE CASTS 7 /uL (0-3.1); PH,URINE 5.5 (5.0-8.0); URINE APPEARANCE CLOUDY; URINE BACTERIA 1342 /uL (0-1359); URINE BILIRUBIN NEGATIVE (NEGATIVE); URINE COLOR DK YELLOW; URINE GLUCOSE (UA) NEGATIVE (NEGATIVE); URINE KETONE 1+ (NEGATIVE); URINE LEUK ESTERASE 1+ (NEGATIVE); URINE NITRITE NEGATIVE (NEGATIVE); URINE PROTEIN 2+ (NEGATIVE); URINE RBC 160 /uL (0-23.9); URINE UROBILINOGEN 0.2 mg/dL (0.2-1.0); URINE WBC 118 /uL (0-25.8)
[2021-01-10] MEDS ORDERED: KETOROLAC TROMETHAMINE 15 MG/ML VIAL IVPUSH ONE (04:47)
[2021-01-10] MEDS ORDERED: KETOROLAC TROMETHAMINE 15 MG/ML VIAL ONE (04:59)
[2021-01-10 06:36] LABS: EPI CELLS 12 /uL (0-25.1); HYALINE CASTS 1 /uL (0-3.1); PH,URINE 5.5 (5.0-8.0); URINE APPEARANCE Clear; URINE BACTERIA 424 /uL (0-1359); URINE BILIRUBIN Negative (NEGATIVE); URINE COLOR Yellow; URINE GLUCOSE (UA) Negative (NEGATIVE); URINE KETONE Trace (NEGATIVE); URINE LEUK ESTERASE Negative (NEGATIVE); URINE NITRITE Negative (NEGATIVE); URINE PROTEIN TRACE (NEGATIVE); URINE RBC 130 /uL (0-23.9); URINE UROBILINOGEN 0.2 mg/dL (0.2-1.0)
[2021-01-10 06:46] LABS: URINE WBC 58 /uL (0-25.8)
[2021-01-10] MEDS ORDERED: TAMSULOSIN HCL 0.4 MG CAP PO ONE (07:08)
[2021-01-10] MEDS ORDERED: METOCLOPRAMIDE HCL INJECTION 10 MG/2 ML VIAL IVPUSH ONE (07:40)
[2021-01-10] MEDS ORDERED: LACTATED RINGERS SOLUTION 1000 ML INFUS.BAG IV ONE (07:40)
[2021-01-10] MEDS ORDERED: TAMSULOSIN HCL 0.4 MG CAP ONE (08:28)
[2021-01-10] MEDS ORDERED: METOCLOPRAMIDE HCL INJECTION 10 MG/2 ML VIAL ONE (08:28)
[2021-01-10] MEDS ORDERED: CEFTRIAXONE 1 GM/50 ML BAG ONE (08:29)
[2021-01-10 09:46] LABS: URINE CRYSTALS FEW /hpf
[2021-01-10] MEDS ORDERED: FLU VACCINE (FLULAVAL) PF 60 MCG/0.5 ML SYRINGE 2020-2021 IM ONE (11:12)
[2021-01-10] MEDS ORDERED: ACETAMINOPHEN 325 MG TABLET (FP) PO PRN (12:31)
[2021-01-10] MEDS: DEXTROSE 5%-0.45% SALINE 1,000 ML IV SCH (13:35)
[2021-01-10] MEDS: ALBUTEROL SO4 HFA INHALER IH SCH ×3 (13:51→21:34)
[2021-01-11] MEDS: ONDANSETRON 4 MG/2 ML VIAL IVPUSH PRN ×4 (00:02→23:28)
[2021-01-11] MEDS: MORPHINE SULFATE 2 MG/ML VIAL IVPUSH PRN ×4 (00:02→23:28)
[2021-01-11] MEDS: ALBUTEROL SO4 HFA INHALER IH SCH ×6 (00:13→21:33)
[2021-01-11] MEDS: DEXTROSE 5%-0.45% SALINE 1,000 ML IV SCH ×2 (03:42→17:37)
[2021-01-11] MEDS ORDERED: DEXTROSE 5%-WATER - 50 ML IVPB ONE (09:10)
[2021-01-11] MEDS ORDERED: cefTRIAXone SODIUM 1 GM VIAL ONE (09:10)
[2021-01-11] MEDS: ENOXAPARIN NA (PORCINE) 40 MG/0.4 ML DISP.SYRIN SQ SCH (09:20)
[2021-01-11] MEDS: CEFTRIAXONE 1 GM in DEXTROSE 5%-WATER - 50 ML IVPB SCH (09:20)
[2021-01-11] MEDS: PANTOPRAZOLE 40 MG TABLET PO SCH (09:20)
[2021-01-11 09:54] LABS: BASO % 0.4 % (0-2.0); EOS % 0.1 % (0-4.5); HEMATOCRIT 40.3 % (35.4-49); HEMOGLOBIN 13.8 GM/dL (11.7-16.9); LYMPH % 9.2 % (8-40); MCH 30.3 pg (25.7-33.7); MCHC 34.4 g/dl (32.0-35.9); MEAN CELL VOLUME 88.1 fl (80-96); MEAN PLT VOLUME 8.4 fl (7.5-11.1); MONO % 8.7 % (3.8-10.2); NEUT % 81.6 % (42.8-82.8); PLATELET COUNT 271 K/MM3 (134-434); RBC 4.57 M/mm3 (4.00-5.60); RDW 12.8 % (11.9-15.9); WHITE BLOOD COUNT 13.7 K/mm3 (4.0-10.0)
[2021-01-11 10:14] LABS: ALBUMIN 3.7 g/dl (3.4-5.0); CALCIUM 8.6 mg/dL (8.5-10.1)
[2021-01-11 10:18] LABS: CREATININE 1.1 mg/dL (0.55-1.3)
[2021-01-11 10:19] LABS: BILIRUBIN,TOTAL 1.2 mg/dL (0.2-1); TOT PROT 6.8 g/dl (6.4-8.2)
[2021-01-12] MEDS: ALBUTEROL SO4 HFA INHALER IH SCH ×6 (02:58→21:58)
[2021-01-12] MEDS: ONDANSETRON 4 MG/2 ML VIAL IVPUSH PRN ×2 (06:49→12:37)
[2021-01-12] MEDS: MORPHINE SULFATE 2 MG/ML VIAL IVPUSH PRN ×2 (06:49→12:36)
[2021-01-12] MEDS: DEXTROSE 5%-0.45% SALINE 1,000 ML IV SCH ×2 (07:35→12:38)
[2021-01-12] MEDS ORDERED: DEXTROSE 5%-WATER - 50 ML IVPB ONE (10:51)
[2021-01-12] MEDS ORDERED: cefTRIAXone SODIUM 1 GM VIAL ONE (10:51)
[2021-01-12] MEDS: CEFTRIAXONE 1 GM in DEXTROSE 5%-WATER - 50 ML IVPB SCH (11:05)
[2021-01-12] MEDS: PANTOPRAZOLE 40 MG TABLET PO SCH (11:05)
[2021-01-12] MEDS: ENOXAPARIN NA (PORCINE) 40 MG/0.4 ML DISP.SYRIN SQ SCH (11:05)
[2021-01-12] MEDS ORDERED: ONDANSETRON 4 MG/2 ML VIAL IVPB PRN (11:29)
[2021-01-12 12:36] LABS: BASO % 0.3 % (0-2.0); EOS % 0.4 % (0-4.5); HEMATOCRIT 40.9 % (35.4-49); HEMOGLOBIN 14.3 GM/dL (11.7-16.9); LYMPH % 9.9 % (8-40); MCH 30.5 pg (25.7-33.7); MCHC 34.9 g/dl (32.0-35.9); MEAN CELL VOLUME 87.4 fl (80-96); MEAN PLT VOLUME 8.2 fl (7.5-11.1); MONO % 7.3 % (3.8-10.2); NEUT % 82.1 % (42.8-82.8); PLATELET COUNT 270 K/MM3 (134-434); RBC 4.68 M/mm3 (4.00-5.60); RDW 12.7 % (11.9-15.9)
[2021-01-12] MEDS: METOCLOPRAMIDE HCL INJECTION 10 MG/2 ML VIAL IVPB SCH ×2 (12:36→17:17)
[2021-01-12 12:57] LABS: CALCIUM 8.8 mg/dL (8.5-10.1)
[2021-01-12 12:58] LABS: ALBUMIN 3.7 g/dl (3.4-5.0); BLOOD UREA NITROGEN 13.5 mg/dL (7-18)
[2021-01-12 13:03] LABS: BILIRUBIN,TOTAL 0.9 mg/dL (0.2-1)
[2021-01-12] MEDS: RIFAXIMIN 550 MG TABLET (UD) PO SCH ×2 (14:52→21:56)
[2021-01-13] MEDS: ALBUTEROL SO4 HFA INHALER IH SCH ×4 (00:21→11:59)
[2021-01-13] MEDS: DEXTROSE 5%-0.45% SALINE 1,000 ML IV SCH ×2 (00:27→13:16)
[2021-01-13] MEDS: MORPHINE SULFATE 2 MG/ML VIAL IVPUSH PRN ×2 (00:35→09:12)
[2021-01-13] MEDS: METOCLOPRAMIDE HCL INJECTION 10 MG/2 ML VIAL IVPB SCH ×2 (01:43→09:09)
[2021-01-13] MEDS: RIFAXIMIN 550 MG TABLET (UD) PO SCH ×2 (05:09→13:59)
[2021-01-13] MEDS ORDERED: cefTRIAXone SODIUM 1 GM VIAL ONE (09:03)
[2021-01-13] MEDS ORDERED: DEXTROSE 5%-WATER - 50 ML IVPB ONE (09:04)
[2021-01-13] MEDS: ENOXAPARIN NA (PORCINE) 40 MG/0.4 ML DISP.SYRIN SQ SCH ×2 (09:09→09:21)
[2021-01-13] MEDS: CEFTRIAXONE 1 GM in DEXTROSE 5%-WATER - 50 ML IVPB SCH (09:11)
[2021-01-13] MEDS: PANTOPRAZOLE 40 MG TABLET PO SCH (09:11)
[2021-01-13 09:12] LABS: BASO % 0.5 % (0-2.0); MCHC 34.6 g/dl (32.0-35.9); MEAN PLT VOLUME 8.5 fl (7.5-11.1); RBC 4.46 M/mm3 (4.00-5.60)
[2021-01-13 09:18] LABS: EOS % 1.7 % (0-4.5); HEMATOCRIT 38.9 % (35.4-49); HEMOGLOBIN 13.5 GM/dL (11.7-16.9); LYMPH % 21.5 % (8-40); MCH 30.2 pg (25.7-33.7); MEAN CELL VOLUME 87.1 fl (80-96); MONO % 10.3 % (3.8-10.2); PLATELET COUNT 269 K/MM3 (134-434); RDW 12.5 % (11.9-15.9); WHITE BLOOD COUNT 8.6 K/mm3 (4.0-10.0)
[2021-01-13 09:44] LABS: BILIRUBIN,TOTAL 1.3 mg/dL (0.2-1)
[2021-01-13 09:45] LABS: TOT PROT 6.4 g/dl (6.4-8.2)
[2021-01-13 09:51] LABS: ALBUMIN 3.4 g/dl (3.4-5.0); BLOOD UREA NITROGEN 14.4 mg/dL (7-18); CALCIUM 8.7 mg/dL (8.5-10.1)
[2021-01-13 09:55] LABS: CREATININE 0.9 mg/dL (0.55-1.3)
[2021-01-13] MEDS ORDERED: PROPOFOL 20 ML ONE (14:48)
[2021-01-13] MEDS ORDERED: MIDAZOLAM HCL 2 MG/2 ML SINGLE DOSE VIAL ONE (14:48)
[2021-01-13] MEDS ORDERED: KETOROLAC TROMETHAMINE 30 MG/1 ML VIAL ONE (14:49)
[2021-01-13] MEDS ORDERED: DEXAMETHASONE SOD PHOSPHATE 4 MG/1 ML VIAL ONE (14:49)
[2021-01-13] MEDS ORDERED: ceFAZolin SODIUM 1 GM VIAL ONE (15:06)
[2021-01-13] MEDS ORDERED: ceFAZolin SODIUM 1 GM VIAL IVPB ONE (15:08)
[2021-01-13] MEDS: ACETAMINOPHEN 325 MG TABLET (FP) PO PRN (19:28)
[2021-01-14 03:17] VITALS: TEMP 98.6
[2021-01-14] MEDS: ACETAMINOPHEN 325 MG TABLET (FP) PO PRN (06:21)
[2021-01-14 09:09] LABS: BASO % 0.2 % (0-2.0); EOS % 0.3 % (0-4.5); HEMATOCRIT 39.3 % (35.4-49); HEMOGLOBIN 13.1 GM/dL (11.7-16.9); LYMPH % 12.7 % (8-40); MCH 29.5 pg (25.7-33.7); MCHC 33.3 g/dl (32.0-35.9); MEAN CELL VOLUME 88.6 fl (80-96); MEAN PLT VOLUME 8.9 fl (7.5-11.1); MONO % 7.7 % (3.8-10.2); NEUT % 79.1 % (42.8-82.8); PLATELET COUNT 266 K/MM3 (134-434); RBC 4.43 M/mm3 (4.00-5.60); RDW 12.6 % (11.9-15.9); WHITE BLOOD COUNT 14.5 K/mm3 (4.0-10.0)
[2021-01-14 09:27] LABS: ALBUMIN 3.4 g/dl (3.4-5.0); BLOOD UREA NITROGEN 20.3 mg/dL (7-18)
[2021-01-14 09:28] LABS: TOT PROT 6.6 g/dl (6.4-8.2)
[2021-01-14] MEDS ORDERED: PANTOPRAZOLE 40 MG TABLET PO SCH (10:00)
[2021-01-14] MEDS ORDERED: CEFTRIAXONE 1 GM in DEXTROSE 5%-WATER - 50 ML IVPB SCH (10:00)
[2021-01-14] MEDS ORDERED: ENOXAPARIN NA (PORCINE) 40 MG/0.4 ML DISP.SYRIN SQ SCH (10:00)
[2021-01-14] MEDS ORDERED: DEXTROSE 5%-WATER - 50 ML IVPB ONE (10:06)
[2021-01-14] MEDS ORDERED: cefTRIAXone SODIUM 1 GM VIAL ONE (10:06)
[2021-01-14 11:02] VITALS: BP 139/84; PULSE 79
[2021-01-22 11:09] LABS: SIZE 2X3 MM
[2021-01-22 11:10] LABS: CA OXALATE MONOHYDR. 90%; WEIGHT 23.0 MG
== END 2021-01-14 13:10 | disposition home or self-care (01) | DRG 661 ==
LOC: JER 00:25 → JERBED 08:21 → J6S 10:20
PROVIDERS: ADMIT Internal Medicine; ATTEND Internal Medicine
PROC: 0TC68ZZ Extirpation of Matter from Right Ureter, Via Natural or Artificial Opening Endoscopic (ICD-10-PCS; principal; 2021-01-13 14:00)
PROC: 0T768DZ Dilation of Right Ureter with Intraluminal Device, Via Natural or Artificial Opening Endoscopic (ICD-10-PCS; 2021-01-13 14:00)
DX: N13.2 Hydronephrosis with renal and ureteral calculous obstruction (principal); K76.0 Fatty (change of) liver, not elsewhere classified; K29.70 Gastritis, unspecified, without bleeding; E66.9 Obesity, unspecified; Z68.25 Body mass index [BMI] 25.0-25.9, adult; R10.9 Unspecified abdominal pain
CPT/HCPCS: 36415; 71045-TC-FY; 74177-TC; 76000-TC-FY; 76700-TC; 78226-TC; 80053; 81003; 82360; 82550; 82553; 83690; 83735; 84100; 84484; 85025; 87040; 87086; 88300-TC; 93005; 93010; 94760; 99285-25; A9537; C9803; G0008; J0131; Q2036; U0003; U0005

== ENCOUNTER 2021-01-15 14:36 | Inpatient (IN) | payer BC ==
[2021-01-15 14:47] VITALS: BMI 30.5
[2021-01-15] MEDS ORDERED: ACETAMINOPHEN 1000 MG/100 ML VIAL (NON FORMULARY) IVPB ONE (16:01)
[2021-01-15] MEDS ORDERED: SODIUM CHLORIDE 1,000 ML IV STA ×2 (16:01→18:55)
[2021-01-15] MEDS ORDERED: ONDANSETRON 4 MG/2 ML VIAL IVPUSH ONE ×2 (16:01→19:36)
[2021-01-15] MEDS ORDERED: ACETAMINOPHEN INJECTION 100 ML IVPB ONE (16:51)
[2021-01-15] MEDS ORDERED: ONDANSETRON 4 MG/2 ML VIAL ONE ×2 (16:52→20:09)
[2021-01-15 17:43] LABS: BASO % 0.5 % (0-2.0); HEMATOCRIT 41.9 % (35.4-49); HEMOGLOBIN 14.2 GM/dL (11.7-16.9); LYMPH % 5.8 % (8-40); MCH 29.9 pg (25.7-33.7); MCHC 33.9 g/dl (32.0-35.9); MEAN CELL VOLUME 88.2 fl (80-96); MEAN PLT VOLUME 8.4 fl (7.5-11.1); MONO % 4.5 % (3.8-10.2); NEUT % 89.2 % (42.8-82.8); PLATELET COUNT 329 K/MM3 (134-434); RBC 4.75 M/mm3 (4.00-5.60); RDW 12.5 % (11.9-15.9); WHITE BLOOD COUNT 13.7 K/mm3 (4.0-10.0)
[2021-01-15 17:49] LABS: INR 1.09 (0.83-1.09); PROTHROMBIN TIME (PATIENT) 13.1 SEC (9.7-13.0)
[2021-01-15 18:05] LABS: BLOOD UREA NITROGEN 16.9 mg/dL (7-18); CALCIUM 9.8 mg/dL (8.5-10.1)
[2021-01-15 18:08] LABS: CREATININE 0.9 mg/dL (0.55-1.3)
[2021-01-15 18:09] LABS: EPI CELLS 36 /uL (0-25.1); HYALINE CASTS 13 /uL (0-3.1); PH,URINE 6.5 (5.0-8.0); URINE APPEARANCE TURBID; URINE BILIRUBIN 1+ (NEGATIVE); URINE COLOR RED; URINE GLUCOSE (UA) NEGATIVE (NEGATIVE); URINE KETONE 3+ (NEGATIVE); URINE LEUK ESTERASE 2+ (NEGATIVE); URINE NITRITE POSITIVE (NEGATIVE); URINE PROTEIN 3+ (NEGATIVE); URINE UROBILINOGEN 0.2 mg/dL (0.2-1.0); URINE WBC 186 /uL (0-25.8)
[2021-01-15 18:10] LABS: BILIRUBIN,TOTAL 0.6 mg/dL (0.2-1); TOT PROT 7.7 g/dl (6.4-8.2)
[2021-01-15 18:24] LABS: ALBUMIN 4.2 g/dl (3.4-5.0)
[2021-01-15 18:31] LABS: URINE BACTERIA 1.9 /uL (0-1359)
[2021-01-15] MEDS ORDERED: CEFTRIAXONE 1,000 MG in DEXTROSE 5%-WATER - 50 ML IVPB ONE (18:55)
[2021-01-15] MEDS ORDERED: CEFTRIAXONE 2,000 MG in DEXTROSE 5%-WATER - 50 ML IVPB ONE (18:56)
[2021-01-15] MEDS ORDERED: morphine CARPU-JECT 4 MG/1 ML DISP.SYRIN IVPUSH ONE (19:36)
[2021-01-15] MEDS ORDERED: CEFTRIAXONE 2 GM/100 ML BAG IVPB ONE (20:00)
[2021-01-15] MEDS ORDERED: morphine SULFATE 4 MG/ML VIAL ONE (20:08)
[2021-01-15] MEDS ORDERED: ACETAMINOPHEN 325 MG TABLET (FP) PO PRN (21:58)
[2021-01-15] MEDS ORDERED: DEXTROSE 5%-0.45% SALINE 1,000 ML IV SCH (22:00)
[2021-01-16] MEDS: RIFAXIMIN 550 MG TABLET (UD) PO SCH ×4 (01:43→21:28)
[2021-01-16] MEDS ORDERED: ONDANSETRON 4 MG/2 ML VIAL ONE (01:44)
[2021-01-16] MEDS ORDERED: MORPHINE SULFATE 2 MG/ML VIAL ONE (01:44)
[2021-01-16] MEDS: ONDANSETRON 4 MG/2 ML VIAL IVPUSH PRN ×2 (01:53→20:04)
[2021-01-16] MEDS: MORPHINE SULFATE 2 MG/ML VIAL IVPUSH PRN ×2 (01:53→20:04)
[2021-01-16] MEDS: DEXTROSE 5%-0.45% SALINE 1,000 ML IV SCH ×2 (04:07→13:49)
[2021-01-16 08:16] LABS: HEMOGLOBIN 12.9 GM/dL (11.7-16.9); RBC 4.29 M/mm3 (4.00-5.60); WHITE BLOOD COUNT 14.1 K/mm3 (4.0-10.0)
[2021-01-16 08:17] LABS: BASO % 0.7 % (0-2.0); EOS % 0.4 % (0-4.5); HEMATOCRIT 37.6 % (35.4-49); LYMPH % 18.1 % (8-40); MCH 30.2 pg (25.7-33.7); MCHC 34.4 g/dl (32.0-35.9); MEAN CELL VOLUME 87.7 fl (80-96); MEAN PLT VOLUME 8.4 fl (7.5-11.1); MONO % 8.1 % (3.8-10.2); NEUT % 72.7 % (42.8-82.8); PLATELET COUNT 314 K/MM3 (134-434); RDW 12.9 % (11.9-15.9)
[2021-01-16 08:43] LABS: BLOOD UREA NITROGEN 14.8 mg/dL (7-18)
[2021-01-16 08:45] LABS: ALBUMIN 3.5 g/dl (3.4-5.0)
[2021-01-16 08:49] LABS: BILIRUBIN,TOTAL 0.7 mg/dL (0.2-1); TOT PROT 6.6 g/dl (6.4-8.2)
[2021-01-16] MEDS ORDERED: PANTOPRAZOLE 40 MG TABLET ONE (08:56)
[2021-01-16] MEDS ORDERED: CEFTRIAXONE 1 GM/50 ML BAG ONE (08:57)
[2021-01-16] MEDS ORDERED: ENOXAPARIN NA (PORCINE) 40 MG/0.4 ML DISP.SYRIN SQ SCH (10:00)
[2021-01-16] MEDS: PANTOPRAZOLE 40 MG TABLET PO SCH (10:49)
[2021-01-16] MEDS: CEFTRIAXONE 1 GM in DEXTROSE 5%-WATER - 50 ML IVPB SCH (10:49)
[2021-01-17] MEDS: MORPHINE SULFATE 2 MG/ML VIAL IVPUSH PRN (01:25)
[2021-01-17] MEDS: ONDANSETRON 4 MG/2 ML VIAL IVPUSH PRN (01:26)
[2021-01-17] MEDS: DEXTROSE 5%-0.45% SALINE 1,000 ML IV SCH (03:10)
[2021-01-17] MEDS: RIFAXIMIN 550 MG TABLET (UD) PO SCH ×2 (07:07→13:24)
[2021-01-17] MEDS ORDERED: TAMSULOSIN HCL 0.4 MG CAP PO SCH (08:30)
[2021-01-17] MEDS ORDERED: PT OWN MED DRAWER 7, Y5N ONE (09:21)
[2021-01-17] MEDS ORDERED: cefTRIAXone SODIUM 1 GM VIAL ONE (09:22)
[2021-01-17] MEDS ORDERED: DEXTROSE 5%-WATER - 50 ML IVPB ONE (09:22)
[2021-01-17 09:23] LABS: BASO % 0.9 % (0-2.0); EOS % 1.4 % (0-4.5); HEMATOCRIT 39.4 % (35.4-49); HEMOGLOBIN 13.4 GM/dL (11.7-16.9); LYMPH % 24.2 % (8-40); MCH 30.2 pg (25.7-33.7); MCHC 33.9 g/dl (32.0-35.9); MEAN CELL VOLUME 89.1 fl (80-96); MEAN PLT VOLUME 8.9 fl (7.5-11.1); MONO % 9.1 % (3.8-10.2); NEUT % 64.4 % (42.8-82.8); PLATELET COUNT 278 K/MM3 (134-434); RBC 4.42 M/mm3 (4.00-5.60); RDW 12.6 % (11.9-15.9); WHITE BLOOD COUNT 9.4 K/mm3 (4.0-10.0)
[2021-01-17] MEDS: PANTOPRAZOLE 40 MG TABLET PO SCH (09:35)
[2021-01-17] MEDS: CEFTRIAXONE 1 GM in DEXTROSE 5%-WATER - 50 ML IVPB SCH (09:36)
[2021-01-17] MEDS ORDERED: POLYETHYLENE GLYCOL 3350 119 GM BTL PO SCH (13:45)
[2021-01-17 15:56] VITALS: BP 125/81; PULSE 65; TEMP 99
== END 2021-01-17 17:00 | disposition home or self-care (01) | DRG 690 ==
LOC: JER 14:36 → JERBED 20:09 → J8W 01-16 12:09
PROVIDERS: ADMIT Family Medicine Geriatric Medicine; ATTEND Family Medicine Geriatric Medicine
DX: N39.0 Urinary tract infection, site not specified (principal); K76.0 Fatty (change of) liver, not elsewhere classified; J45.909 Unspecified asthma, uncomplicated; K42.9 Umbilical hernia without obstruction or gangrene; R11.2 Nausea with vomiting, unspecified; Z96.0 Presence of urogenital implants
CPT/HCPCS: 36415; 76775-TC; 76856-TC; 80053; 81003; 83605; 85025; 85610; 87040; 87086; 93005; 93010; 99285-25; C9803; J0131; U0003; U0005